=== PATIENT | male | born 2005 | race Caucasian/White ===

== ENCOUNTER 2023-04-19 10:35 | Outpatient (REF) | payer BC, SELFPAY ==
--- NOTE | ~2023-04-19 | XR_ITS ---
EXAMINATION: XR HAND, RIGHT CLINICAL INFORMATION: Pain. COMPARISON: CT right hand dated 04/19/2023. TECHNIQUE: PA, lateral, and oblique views of the right hand. FINDINGS: Bony alignment and mineralization are normal. There is a neutral ulnar variance. A displaced intra-articular fracture fragment is redemonstrated arising from the lateral aspect of the head of the third proximal phalanx. There is mild adjacent soft tissue swelling. No dislocation is seen. No soft tissue gas or foreign body is noted. XR/XR hand RT min 3V IMPRESSION: A displaced fracture is redemonstrated of the lateral aspect of the head of the right third proximal phalanx.
== END 2023-04-19 10:36 | disposition home or self-care (01) ==
LOC: HO.HOSX 10:35
PROVIDERS: PCP Family Medicine Sports Medicine; Visit Provider Physician Assistant
DX: S62.612A Displaced fracture of proximal phalanx of right middle finger, initial encounter for closed fracture (principal)
CPT/HCPCS: 73130

== ENCOUNTER 2023-04-19 10:35 | Outpatient (AMB) | payer BC, SELFPAY ==
--- NOTE | 2023-04-19 10:42 | A.OFFVIS_ITS ---
Intake Intake Visit Reasons: [facility]- FC of 3rd digit Intake Note: Vadim is a 17 year old left hand dominant male who presents today as a new patient for a evaluation of his right middle finger, DOI 04/17/23. Patient reports he was hiking and his hiking cleats got caught in something which lead him to fall forward. He states having some stiffness and a lot of pain with movement. Denies numbness and tingling. Allergies No Known Allergies Allergy (Verified 04/19/23 10:43) HPI [facility]- FC of 3rd digit HPI Details 17-year-old male who presents in the off ice today, as a new patient, for an evaluation of right hand pain. The patient reports he was hiking when he cleat got caught in something which lead him to fall forward. He reports some stiffness and a lot of pain with movement. He denies numbness or tingling. [facility] (Updated 04/19/23 @ 10:44 by Jerald Cueva) Alcohol intake: current Patient Tobacco Use Status: Never used Tobacco Current occupational status: student Current occupation: left hand dominant Review of Systems Const All systems reviewed & are unremarkable except as noted in HPI and below Physical Exam Const General: cooperative and no acute distress Orientation/consciousness: patient oriented x3 Resp Effort & Inspection: normal respiratory effort and able to speak in complete sentences Cardio Peripheral pulses: Peripheral pulses 2+ throughout Skin General skin exam: no rashes or lesions noted Neuro General: patient oriented x3 Extrem Other: Right hand: Middle finger is edematous and tender to palpation. Able to flex and extend at the PIP, DIP, and CMC joint. Laxity radial collateral ligament of the PIP joint of the middle finger on exam. Sensation intact. Capillary refill is brisk. Assessment & Plan Assessment & Plan (1) Fracture of proximal phalanx of middle finger: Code(s): S62.618A - Displaced fracture of proximal phalanx of other finger, initial encounter for closed fracture Qualifiers: Encounter type: initial encounter Fracture alignment: displaced Fracture type: closed Laterality: right Qualified Code(s): S62.612A - Displaced fracture of proximal phalanx of right middle finger, initial encounter for closed fracture Plan Mr. Hobson is a 17-year-old male who presents in the office today, as a new patient, for an evaluation of right hand pain. The patient reports he was hiking when he cleat got caught in something which lead him to fall forward. He reports some stiffness and a lot of pain with movement. He denies numbness or tingling. Dr. Irving was available to see the patient while in the office today, we also discussed the case with Dr. Pepe, and a collaborative treatment plan was made. The patient will be referred for a stat fine cut CT scan with middle digit focus for further evaluation of the right hand. Dr. Irving will call the patient once the CT scan is obtain to further discuss surgical intervention with Dr. Pepe. I discussed in detail the procedure and what to expect pre and post operatively. We discussed the risks, benefits and alternatives to the surgery as well as the rehabilitation course. The risks; which include, but are not limited to infec tion, bleeding, nerve injury, ongoing pain, swelling, and stiffness, perioperative risk of injury to bones and soft tissues, and blood clots. With their understanding they have consented to move forward with open vs closed reduction internal fixation right middle finger with Dr. Pepe He was placed in a finger splint, off the shelf, while in the office today. Follow up will be after the stat CT is obtained, or sooner if needed. OF NOTE: The patient will be obtaining his stat CT today, 04/19/2023, at 2:15 pm, EST. X-rays of the right hand which were obtained while in the office today and were reviewed by me, Franny Peter PA-C, revealed avulsion fracture of the proximal phalanx right middle finger. Orders: Orders XR hand RT min 3V Today M79.643 - Pain in unspecified hand CT hand RT wo IV con Today S62.618A - Displaced fracture of proximal phalanx of other finger, initial encounter for closed fracture Patient Instructions: Scribed for Franny Peter PA-C by Ale Clark medical operations supervisor, on 04/19/2023 at 10:38 am, EST. Coding Level of Care Code New Pt Level 4 (40495) Diagnoses Closed displaced fracture of proximal phalanx of right middle finger, initial encounter S62.121M Encounter type: initial encounter Fracture alignment: displaced Fracture type: closed Laterality: right
== END 2023-04-19 11:44 | disposition home or self-care (01) ==
PROVIDERS: PCP Family Medicine Sports Medicine; Visit Provider Physician Assistant
DX: S62.612A Displaced fracture of proximal phalanx of right middle finger, initial encounter for closed fracture (principal)
CPT/HCPCS: 99204

== ENCOUNTER 2023-04-19 14:05 | Outpatient (REF) | payer BC, SELFPAY ==
--- NOTE | ~2023-04-19 | CT_ITS ---
EXAMINATION: CT HAND WITHOUT CONTRAST, RIGHT CLINICAL INFORMATION: Displaced fracture of the proximal phalanx of the middle finger. COMPARISON: X-ray 04/19/2023. TECHNIQUE: Axial imaging. Sagittal and coronal reconstructions. This CT examination was performed using dose optimization techniques as appropriate, variously including the following: *Automated exposure control *Adjustment of mA and/or kV according to patient size (this includes techniques or standardized protocols for targeted exams where dose is matched to indication/reason for exam; i.e. extremities or head) *Use of iterative reconstruction technique DLP: 122 mGy-cm. FINDINGS: Middle Finger: There is an intra-articular fracture of the dorsal, central/radial aspect of the head of the proximal phalanx. There is a displaced ossific fragment measuring 6 x 3 x 8 mm (AP, transverse, length), displaced adjacent to the radial aspect of the PIP joint. The fracture fragment is rotated, with fracture surface facing radially. There is a surrounding soft tissue swelling and subcutaneous edema. The PIP joint articulation is maintained. No additional acute fractures identified. CT/CT hand RT wo IV con IMPRESSION: Displaced intra-articular fracture of the dorsal aspect of the head of the proximal phalanx. The fracture fragment is displaced radially adjacent to the PIP joint, and measures approximately 8 x 3 x 8 mm. The fracture fragment is rotated such that the fracture surface is facing radially.
== END 2023-04-19 14:06 | disposition home or self-care (01) ==
LOC: HO.CT 14:05
PROVIDERS: Visit Provider Physician Assistant
DX: S62.618A Displaced fracture of proximal phalanx of other finger, initial encounter for closed fracture (principal)
CPT/HCPCS: 73200

== ENCOUNTER 2023-04-25 05:53 | Day surgery (SDC) | payer BC, SELFPAY ==
[2023-04-25] VITALS (9 sets, daily range): BP systolic 122–141; BP diastolic 47–80; PULSE 76–94; RESP 14–18; TEMP 36.4–36.8; O2SAT 96–99; BMI 23.7
--- NOTE | ~2023-04-25 | FL_ITS ---
EXAMINATION: XR FLUOROSCOPY WITH IMAGES CLINICAL INFORMATION: Middle finger ORIF versus CRPP, right. COMPARISON: X-ray and CT of the right hand 04/19/2023 TECHNIQUE: Fluoroscopy Supervised By: Dr. Nubia Pepe. Fluoroscopy Time: 39.24 seconds. Cumulative Dose: 0.932 mGy. DAP: 0.563 Gycm2. Images: 12. FINDINGS: Images demonstrate a K wire or pin in the proximal phalanx of the right third finger with improved alignment of the displaced fracture fragment. FL/FL guidance in OR IMPRESSION: Fluoroscopy guidance for ORIF of proximal phalanx fracture of the right third finger
[2023-04-25] MEDS: Lactated Ringers 1,000 ML 80 ML IVCONT (06:25)
--- NOTE | 2023-04-25 07:30 | HO.ANESPROP2 ---
HPI - Anesthesia Eval Consult details Narrative: 17 yo male patient for Right Middle finger ORIF vs CRPP PMFSH Active Problems Active Problems: All Active Problems (Updated 04/25/23 @ 07:10 by Aubree Quintanilla MD) Fracture of proximal phalanx of middle finger (Acute) Past Medical History Medical History No known problems Family History Family history of problems with anesthesia: No Surgical History Surgical History No pertinent past surgical history History of Problems with Anesthesia: No Social History Alcohol intake: current Patient Tobacco Use Status: Never used Tobacco Are you DNR?: No Advance Directives: No Advance Directives Information Provided: Yes Nutrition Risks: No Nutritional Risk Current occupational status: student Current occupation: left hand dominant Meds Allergies Allergy/AdvReac Type Severity Reaction Status Date / Time No Known Allergies Allergy Verified 04/25/23 07:02 Active Medications: Current Medications Lactated Ringer's (Lr) 1,000 mls @ 80 mls/hr IVCONT .[id number] Last Admin: 04/25/23 06:25 Dose: 80 mls/hr Home Medications Medication Instructions Recorded Confirmed Last Taken Type No Known Home Meds 04/19/23 04/25/23 Unknown History Exam Height,Weight and Vital Signs: Height 6 ft 1 in Weight 81.556 kg Last Vital Signs Temp 98.3 F 04/25/23 06:03 Pulse 76 04/25/23 06:03 Resp 18 04/25/23 06:03 BP 141/80 H 04/25/23 06:03 Pulse Ox 99 04/25/23 06:03 O2 Del Method Room Air 04/25/23 06:03 Airway Mallampati Class: II TM Dist: >3cm Neck ROM: Full Loose/Missing/Broken Teeth: No (Denies broken, loose, missing teeth) Heart: RRR Lungs: CTAB Assessment and Plan Assessment Anesthesia Assessment: Anesthesia Plan Discussed and Chart Reviewed Final Anesthetic Review Family History of Problems with Anesthesia: No History of Problems with Anesthesia: No NPO: Yes ASA Class: I Final Preanesthetic Review: No Changes in Pt Med Stat, Meds/Allgs Chart Reviewed, Consent Obtained/Reviewed and Anes Risks/Benef Reviewed Patient Risk: Low Procedure Risk: Low Assessment/Block/Sedation in SS: Assess/Block/Sedation-SS Anesthetic Plan Anesthetic Plan: GA Disposition: Standard PACU
--- NOTE | 2023-04-25 10:35 | MHC.SHP ---
Pre-Procedural Eval Section A Date of Service: 04/25/23 Section B Chief Complaint: Displaced fracture of proximal phalanx of right mi Allergies: Allergies Allergy/AdvReac Type Severity Reaction Status Date / Time No Known Allergies Allergy Verified 04/25/23 07:02 Exam Exam Comment: The patient was alert oriented and in no acute distress. He has some mild swelling of the right middle finger at the PIP joint. He did have some active flexion to about 45 degrees and able to bring it back into extension. No lacerations or evidence of open injury. He did have some laxity of the radial collateral ligament of the right middle finger PIP joint. Radiographs and a CT scan of his right hand were reviewed by me On prior occasions and again today: They show an intra-articular fracture of the right middle finger proximal phalanx distal articular surface. Of a segment of the dorsal radial articular surface was displaced 100% and positioned radial to the PIP joint. Plan I have reviewed the history and physical and performed a pertinent physical examination on my patient. No changes have occurred unless specified. Assessment and plan: 1. Right middle finger proximal phalanx fracture, distal intra-articular with displacement date of injury about 8 days ago. I educated the patient about this condition we discussed operative and non operative treatment options and I am recommending surgery. He wished to proceed with surgery . The risks and benefits of operative treatment were discussed with the patient and the patient wishes to proceed with surgery. These risks include, but are not limited to risk of damage to blood vessels, nerves, tendons, infection, recurrence, incomplete relief of preoperative symptoms, persistent pain, possible need for further surgery and the risks associated with regional blocks and anesthesia. The plan is to take the patient to the operating room Today for the following procedures: 1. right middle finger proximal phalanx fracture open reduction internal fixation 2. [ ] All of the preoperative paperwork including the consent was filled out and signed today. All the patient's questions were answered. Time Spent With Patient Time: Total time managing care of this patient today ____ minutes.
--- NOTE | 2023-04-25 10:41 | P.OP_ITS ---
Operative Note Operative Note Date of Service: 04/25/23 Narrative: Operative Note Narrative: Preop diagnosis: 1. Right middle finger proximal phalanx fracture, distal intra-articular with displacement Postop diagnosis: Same Procedure: 1. Right middle finger proximal phalanx fracture open reduction internal fixation of the distal articular surface Surgeon: Nubia Pepe MD Anesthesia: General Anesthesia Findings: the dorsal radial fragment of the distal articular surface of the proximal phalanx was 100% displaced flipped and lying radial to the PIP joint. The radial collateral ligament was attached both distally and to the fragment. Implants: A 0.035 K-wire x1 Tourniquet time: 81 minutes EBL: 5.0 ml Specimen: none Drains: None Complications: None Disposition: Brought to the recovery room in stable condition Plan: Follow-up in 2 weeks for wound check, suture removal and pre clinic radiographs I will likely place him in a short-arm finger spica cast until between about 5 weeks postop. Anticipate removal of K-wire once good evidence of interval bony healing which I think will likely be in about 5 weeks postop. At that point he will need to start edmond taping and working with OT hand therapy to get back his range of motion. Indications: The patient is a [age] year old young man and [employer] student with a right middle finger proximal phalanx fracture at the distal radial articular surface with 100% displacement. . The risks and benefits of operative treatment, including but not limited to risk of damage to blood vessels, nerves, tendons, infection, recurrence, persistent pain or numbness, incomplete resolution of preoperative symptoms, or need for further surgery were discussed with the patient and they wished to proceed with surgery. Procedure: Once consent was obtained patient was brought back to the operating suite and placed in the operating table in a supine position. . Perioperative antibiotics and anesthesia was administered by the anesthesia team. A tourniquet was applied to the proximal aspect of the right upper extremity and the limb was prepped and draped in a standard surgical fashion. The limb was elevated exsanguinated with Esmarch bandage and the tourniquet inflated to 250 mm of mercury for a total tourniquet time of 81 minutes. the FluoroScan was used throughout our case to assess fracture reduction and placement of all implants. I made a midlateral incision over the radial aspect of the right middle finger PIP joint. The incision was made through the skin the subcutaneous tissues using a 15. Blade. I then carefully dissected down to the level of the lateral band, and then the radial aspect of the PIP joint. The fragment containing the dorsal radial aspect of the proximal phalanx distal articular surface was found to be attached to the radial collateral ligament, and positioned radial to the PIP joint. The fragment was left attached to the radial collateral ligament but otherwise dissected free from the surrounding soft tissues. The fracture site at the distal aspect of the proximal phalanx was cleared of soft tissue using a small rongeur and small curette. This then allowed me to assess the proper orientation of the distal articular fragment. I then flipped the fracture fragment into position and secured in place with a single 0.035 K-wire. Visually, this appeared to realign the articular surface. On fluoroscopic images we also appear to have obtain satisfactory fracture reduction and alignment. I did attempt to place a 2nd 0.035 K-wire for additional fixation, but I found that this moved the fracture fragment out of its anatomic we reduced position. I thus removed this K-wire. I found the fracture fragment was again in its essentially anatomic position both radiographically and visually And was stable testing.. I then used some 4-0 Vicryl to further grasp on to the radial collateral ligament secured to the periosteum. Multiple foot final fluoroscopic images were obtained. I was happy with our reduction and placement of all implants. [ ] At this point the tourniquet was deflated and hemostasis obtained with a brief period of local pressure . The wound was copiously irrigated with normal sali ne. The skin edges were reapproximated with 5-0 nylon suture. A digital block was performed with some 0.5% plain Marcaine for postop pain control and a sterile dressing was applied. the patient was then placed in a manager animal splint. The patient appears to have tolerated the procedure well and with no complications. All digits were well vascularized conclusion of the case.
[2023-04-25] MEDS: ondansetron HCL 4 MG/2 ML VIAL IVPUSH (11:16)
== END 2023-04-25 12:30 | disposition home or self-care (01) ==
PROVIDERS: Visit Provider Orthopaedic Surgery
PROC: (CPT 26735; principal; 2023-04-25 07:30)
DX: S62.612A Displaced fracture of proximal phalanx of right middle finger, initial encounter for closed fracture (principal); M79.641 Pain in right hand; W18.39XA Other fall on same level, initial encounter; Y93.01 Activity, walking, marching and hiking; Y92.9 Unspecified place or not applicable; Y99.9 Unspecified external cause status
CPT/HCPCS: 26735; J0690; J1100; J1885; J2250; J2405; J2704; J2795; J3010

== ENCOUNTER → 2023-04-25 05:53 | Outpatient (BNV) | payer BC, SELFPAY | PROVIDERS: Visit Provider Orthopaedic Surgery | DX: S62.612A Displaced fracture of proximal phalanx of right middle finger, initial encounter for closed fracture (principal) | CPT/HCPCS: 26735 ==

== ENCOUNTER 2023-05-11 06:06 | Outpatient (REF) | payer BC, SELFPAY ==
--- NOTE | ~2023-05-11 | XR_ITS ---
EXAMINATION: XR HAND, RIGHT CLINICAL INFORMATION: Fracture fixation follow-up COMPARISON: 04/19/2023 TECHNIQUE: PA, lateral, and oblique views of the right hand. FINDINGS: K wire fixation of the fracture fragment at the dorsal/radial aspect of the head of the 3rd proximal phalanx. No definite osseous bridging. On the lateral view, the displacement of the fragment is approximately 0.7 mm. XR/XR hand RT min 3V IMPRESSION: K wire fixation of the fracture fragment at the head of the 3rd proximal phalanx. No definite osseous bridging. CT could better assess if indicated.
== END 2023-05-11 06:07 | disposition home or self-care (01) ==
LOC: HO.HOSX 06:06
PROVIDERS: Visit Provider Physician Assistant
DX: S62.612D Displaced fracture of proximal phalanx of right middle finger, subsequent encounter for fracture with routine healing (principal); M79.641 Pain in right hand; X58.XXXD Exposure to other specified factors, subsequent encounter
CPT/HCPCS: 29085; 73130

== ENCOUNTER 2023-05-11 10:17 | Outpatient (AMB) | payer BC, SELFPAY ==
--- NOTE | 2023-05-11 10:22 | MHC.OFFVIS ---
Intake Intake Visit Reasons: PO-Rt MF ORIF vs CRPP 04/25 Intake Note: Vadim is a 17 year old left hand dominant male who presents today for a post operative right MF CRPP, DOS 04/25/23 . Patient reports he is doing well, states mild pain with movement of hand. Allergies No Known Allergies Allergy (Verified 05/11/23 10:38) Medication List - Last Reconciled 05/11/23 by Annelise Rangel PA-C No Known Home Meds HPI PO-Rt MF ORIF vs CRPP 04/25 HPI Details 17-year-old left hand dominant male who returns to the office today for post-op right middle finger CRPP, 04/25/23. He continues to have mild pain with movement of hand but is doing well overall. 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 He has no other concerns today. [facility] Medical History No known problems Surgical History No pertinent past surgical history Social History Alcohol intake: current Comment: counts correct Patient Tobacco Use Status: Never used Tobacco Current occupational status: student Current occupation: left hand dominant Review of Systems Const All systems reviewed & are unremarkable except as noted in HPI and below Physical Exam Extrem Other: Right middle finger: Incision is intact. Pin intact. No surrounding erythema or drainage sensation intact. Office Procedures Casting/Splints 01914-Wjty/Wrist Cast Application Procedure code (CPT) selection complete Results Reviewed Results Reviewed: Date of Service: 04/25/23 Narrative: Operative Note Preop diagnosis: 1. Right middle finger proximal phalanx fracture, distal intra-articular with displacement Postop diagnosis: Same Procedure: 1. Right middle finger proximal phalanx fracture open reduction internal fixation of the distal articular surface Xrays were obtained in the office today and personally reviewed by me of the right hand show pinn intact with stable fracture alignment Assessment & Plan Assessment & Plan (1) Fracture of proximal phalanx of middle finger: Code(s): S62.618A - Displaced fracture of proximal phalanx of other finger, initial encounter for closed fracture Qualifiers: Encounter type: subsequent encounter Fracture alignment: displaced Fracture healing: with routine healing Fracture type: closed Laterality: right Qualified Code(s): S62.612D - Displaced fracture of proximal phalanx of right middle finger, subsequent encounter for fracture with routine healing Plan: He was placed in a short-arm finger spica cast until about 5 weeks postop. Anticipate removal of K-wire once good evidence of interval bony healing which will likely be in about 5 weeks postop. At that point he will need to start edmond taping and working with OT hand therapy to get back his range of motion. 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 I did mention that he can go ski lounge and perform to that extent but he should be avoiding any type of lifting, pushing, pulling or carrying greater than a cellphone for the next 5 weeks. I also encouraged him to contact the office if he finds the cast uncomfortable or if he gets it dirty or wet. He is content with this plan and will follow-up in 5 weeks with cast off and xrays with Dr Pepe Orders: Orders XR hand RT min 3V Today M79.641 - Pain in right hand Patient Instructions: Scribed for Annelise Rangel PA-C, by Valentin Bowling biomedical service engineer, on 05/11/2023 at 10:30 AM EST. Annelise Engel PA-C, have personally reviewed and agree with the information entered by the scribe. Coding Level of Care Code Global (13861) Diagnoses Closed displaced fracture of proximal phalanx of right middle finger with routine healing, subsequent encounter S62.612D Encounter type: subsequent encounter Fracture alignment: displaced Fracture healing: with routine healing Fracture type: closed Laterality: right CPT Codes Casting - CPT: 27560-Rdxe/Wrist Cast Application ([id number])
== END 2023-05-11 11:46 | disposition home or self-care (01) ==
PROVIDERS: Visit Provider Physician Assistant
DX: S62.612D Displaced fracture of proximal phalanx of right middle finger, subsequent encounter for fracture with routine healing (principal)
CPT/HCPCS: 29085; 99024

== ENCOUNTER 2023-06-22 12:50 | Outpatient (AMB) | payer BC, SELFPAY ==
--- NOTE | 2023-06-22 13:16 | A.OFFVIS_ITS ---
Intake Intake Visit Reasons: PO-Rt MF ORIF vs CRPP 04/25/23 Intake Note: Vadim harrison 17 year old male presents today for a post operative right MF ORIF on 04/25/23 . Patient reports he is doing well, denies pain. He states some soreness. Allergies No Known Allergies Allergy (Verified 06/22/23 13:29) HPI PO-Rt MF ORIF vs CRPP 04/25/23 HPI Details 17-year-old male who returns to the [facility] today for post-op right middle finger ORIF vs CRPP, 04/25/23. He states he has no pain however he reports he has mild swelling in his finger. He is doing well overall and has no other concerns today. [facility] Medical History No known problems Surgical History No pertinent past surgical history Social History Alcohol intake: current Comment: counts correct Patient Tobacco Use Status: Never used Tobacco Current occupational status: student Current occupation: left hand dominant Review of Systems Const All systems reviewed & are unremarkable except as noted in HPI and below Physical Exam Extrem Other: Right middle finger: Pin is intact. There is no erythema or drainage around pin site. NVI. Results Reviewed Results Reviewed: Xrays were obtained in the office today and personally reviewed by me of the [facility] hand show intact pinn with stable fracture /healing Procedure: 04/25/23 1. Right middle finger proximal phalanx fracture open reduction internal fixation of the distal articular surface Surgeon: Nubia Peep MD Anesthesia: General Anesthesia Findings: the dorsal radial fragment of the distal articular surface of the proximal phalanx was 100% displaced flipped and lying radial to the PIP joint. The radial collateral ligament was attached both distally and to the fragment. Implants: A 0.035 K-wire x1 Assessment & Plan Assessment & Plan (1) Fracture of proximal phalanx of middle finger: Code(s): S62.618A - Displaced fracture of proximal phalanx of other finger, initial encounter for closed fracture Qualifiers: Encounter type: subsequent encounter Fracture alignment: displaced Fracture healing: with routine healing Fracture type: closed Laterality: right Qualified Code(s): S62.612D - Displaced fracture of proximal phalanx of right middle finger, subsequent encounter for fracture with routine healing Plan Pin was removed in the office without complications. We did work on some ROM techniques in the office today. I was able to get her MCP to 90, PIP to 90, and DIP to 2nd palmar crease. We worked on this a few times in the office today and explained the importance of working this at home several times a day. She will also begin a course of occupational therapy. We edmond taped the middle and ring finger which keep with activities for the next 2 weeks and I will see her at that time for a ROM check with Dr. Pepe, sooner if needed. Orders: Orders OT Evaluation and Treatment Today S62.618A - Displaced fracture of proximal phalanx of other finger, initial encounter for closed fracture XR hand RT min 3V Today M79.641 - Pain in right hand Patient Instructions: Scribed for Annelise Rangel PA-C, by Valentin Bowling director biomedical engineering, on 06/22/2023 at 1:30 PM YARA. Annelise Engel PA-C, have personally reviewed and agree with the information entered by the scribe. Coding Level of Care Code Global (18986) Diagnoses Closed displaced fracture of proximal phalanx of right middle finger with routine healing, subsequent encounter S62.612D Encounter type: subsequent encounter Fracture alignment: displaced Fracture healing: with routine healing Fracture type: closed Laterality: right
== END 2023-06-22 14:08 | disposition home or self-care (01) ==
PROVIDERS: Visit Provider Physician Assistant
DX: S62.612D Displaced fracture of proximal phalanx of right middle finger, subsequent encounter for fracture with routine healing (principal)
CPT/HCPCS: 99024

== ENCOUNTER 2023-06-22 12:50 | Outpatient (REF) | payer BC, SELFPAY ==
--- NOTE | ~2023-06-22 | XR_ITS ---
EXAMINATION: XR HAND, RIGHT CLINICAL INFORMATION: Pain. COMPARISON: Radiograph right hand 05/11/2023. TECHNIQUE: PA, lateral, and oblique views of the right hand. FINDINGS: Stable positioning of K wire fixation of the fracture fragment at the dorsal/radial aspect of the head of the third proximal phalanx. No evidence of hardware fracture or complication. The fracture line is less distinct suggesting some degree of osseous bridging. No significant callus formation. Stable surrounding soft tissue swelling. XR/XR hand RT min 3V IMPRESSION: 1. Healing fracture of the head of the third proximal phalanx. 2. No evidence of hardware fracture or complication.
== END 2023-06-22 12:51 | disposition home or self-care (01) ==
LOC: HO.HOSX 12:50
PROVIDERS: Visit Provider Physician Assistant
DX: S62.612D Displaced fracture of proximal phalanx of right middle finger, subsequent encounter for fracture with routine healing (principal)
CPT/HCPCS: 73130

== ENCOUNTER 2023-07-06 11:51 | Outpatient (REF) | payer BC, SELFPAY ==
--- NOTE | ~2023-07-06 | XR_ITS ---
EXAMINATION: XR HAND, RIGHT CLINICAL INFORMATION: Pain in the right hand COMPARISON: 06/22/2023 and 05/11/2023 TECHNIQUE: PA, lateral, and oblique views of the right hand. FINDINGS: There is healed fracture with mild soft tissue swelling at the proximal interphalangeal joint of third finger. Seen on the initial images avulsion fragment is completely healed. There is mild periarticular osteopenia seen. XR/XR hand RT min 3V IMPRESSION: Interval healing of fracture. Hardware removed.
== END 2023-07-06 11:52 | disposition home or self-care (01) ==
LOC: HO.HOSX 11:51
PROVIDERS: Visit Provider Orthopaedic Surgery
DX: S62.612D Displaced fracture of proximal phalanx of right middle finger, subsequent encounter for fracture with routine healing (principal)
CPT/HCPCS: 73130

== ENCOUNTER 2023-07-06 13:41 | Outpatient (AMB) | payer BC, SELFPAY ==
--- NOTE | 2023-07-06 13:52 | MHC.OFFVIS ---
Intake Intake Visit Reasons: PO-Rt MF ORIF vs CRPP 04/25/23 AR Intake Note: Vadim a 17 year old male presents today for a post operative right MF ORIF ROM check from 04/25/23. States OT has been helping and he continues to do at home exercises. His numbness and tingling has subsided. He has stiffness with removing finger brace. Allergies No Known Allergies Allergy (Verified 07/06/23 13:57) HPI PO-Rt MF ORIF vs CRPP 04/25/23 AR HPI Details Vadim is a 17 year old right hand dominant man who returns to the office today S/P right middle finger ORIF, DOS: 04/25/23. He says he is doing well, and his sensation has improved. He has been working with OT hand therapy on his ROM. He says he has increased pain when working on ROM, but minimal pain at rest. He has been wearing an satellite communications engineer brace. [facility] Medical History No known problems Surgical History No pertinent past surgical history Social History Alcohol intake: current Comment: counts correct Patient Tobacco Use Status: Never used Tobacco Current occupational status: student Current occupation: left hand dominant Review of Systems Const All systems reviewed & are unremarkable except as noted in HPI and below Physical Exam Const General: no acute distress and alert Orientation/consciousness: patient oriented x3 Neuro General: patient oriented x3 Extrem Other: Evaluation of Right Upper Extremity: The patient is alert, oriented, and in no acute distress Neuro: Median, Ulnar, Radial nerves motor and sensory intact and sensation is normal to the tips of all digits Vascular: Cap refill brisk ROM: He can bring his fingers closed to a fist, with his middle finger PIP joint flexed to 90 degrees Supple flexion contracture of ~20 degrees, which I can bring out into full extension though it's a little uncomfortable. He also has slight flexion contractures of the PIP joints of the ring and small fingers, but again, these can be brought out to full extension. The PIP joint is stable, the ulnar and radial collateral ligaments stable on exam Mild middle finger PIP joint swelling Radiographs: 3 views of the right hand, with attention to the middle finger, were taken and viewed by me today in clinic. They show satisfactory fracture alignment with evidence of interval bony healing. The distal articular fragment that had been flipped out of the joint appears to have healed in anatomic alignment. Psych Appearance: grossly normal Affect: normal affect Attitude: cooperative Assessment & Plan Assessment & Plan (1) Fracture of proximal phalanx of middle finger: Code(s): S62.618A - Displaced fracture of proximal phalanx of other finger, initial encounter for closed fracture Qualifiers: Encounter type: subsequent encounter Fracture type: closed Fracture alignment: displaced Laterality: right Fracture healing: with routine healing Qualified Code(s): S62.612D - Displaced fracture of proximal phalanx of right middle finger, subsequent encounter for fracture with routine healing Plan Assessment & Plan: 1. Right middle finger proximal phalanx fracture, S/P distal articular surface ORIF DOS: 04/25/23 The patient appears to be doing well post-operatively I educated him about the post-operative course I discussed activity modifications, he should continue to work with OT hand therapy on ROM exercises. He should continue to perform these exercises at home and throughout the day. He is able to continue wearing his dynamic extension splint, as directed by OT He is able to return to the gym but should be mindful to work towards heavier activities with his right hand, beginning with lightweight activities He should avoid any heavy impact activities or activities prone to falling for the next few weeks He will follow up in 4-6 weeks for a ROM check, no radiographs unless he has a re-injury Scribed for Nubia Pepe MD by Michael Portillo, adjunct faculty for medical terminology, on 07/06/23 at 2:05 PM, EST. Orders: Orders XR hand RT min 3V 07/06/23 M79.641 - Pain in right hand Coding Level of Care Code Global (48662) Diagnoses Closed displaced fracture of proximal phalanx of right middle finger with routine healing, subsequent encounter S62.612D Encounter type: subsequent encounter Fracture type: closed Fracture alignment: displaced Laterality: right Fracture healing: with routine healing
== END 2023-07-06 14:54 | disposition home or self-care (01) ==
PROVIDERS: Visit Provider Orthopaedic Surgery
DX: S62.612D Displaced fracture of proximal phalanx of right middle finger, subsequent encounter for fracture with routine healing (principal)
CPT/HCPCS: 99024

== ENCOUNTER 2023-08-10 12:45 | Outpatient (AMB) | payer BC, SELFPAY ==
--- NOTE | 2023-08-10 12:53 | A.OFFVIS_ITS ---
Intake Intake Visit Reasons: ov- Rt MF ORIF vs CRPP 04/25/23 AR Intake Note: Vadim a 17 year old male presents today for a S/P right middle finger ORIF, DOS: 04/25/23.ROM check. Allergies No Known Allergies Allergy (Verified 08/10/23 12:53) HPI ov- Rt MF ORIF vs CRPP 04/25/23 AR HPI Details Vadim is a 17 year old right hand dominant man who returns to the office today S/P right middle finger ORIF, DOS: 04/25/23. He is here for a ROM check He says he is doing well, and his motion has improved. He has been working with OT hand therapy on his ROM. He is pleased with the results of his surgery. [facility] Medical History No known problems Surgical History No pertinent past surgical history Social History Alcohol intake: current Comment: counts correct Patient Tobacco Use Status: Never used Tobacco Current occupational status: student Current occupation: left hand dominant Physical Exam Const General: no acute distress and alert Orientation/consciousness: patient oriented x3 Neuro General: patient oriented x3 Extrem Other: Evaluation of Right Upper Extremity: The patient is alert, oriented, and in no acute distress Neuro: Median, Ulnar, Radial nerves motor and sensory intact and sensation is normal to the tips of all digits Vascular: Cap refill brisk ROM: He can bring his fingers closed to a fist, with his middle finger PIP joint flexed to ~100 degrees Supple flexion contracture of ~10-15 degrees No mal-alignment The PIP joint is stable, the ulnar and radial collateral ligaments stable on exam Mild middle finger PIP joint enlargement, though swelling is improving. Psych Appearance: grossly normal Affect: normal affect Attitude: cooperative Assessment & Plan Assessment & Plan (1) Fracture of proximal phalanx of middle finger: Code(s): S62.618A - Displaced fracture of proximal phalanx of other finger, initial encounter for closed fracture Qualifiers: Encounter type: subsequent encounter Fracture alignment: displaced Fracture healing: with routine healing Fracture type: closed Laterality: right Qualified Code(s): S62.612D - Displaced fracture of proximal phalanx of right middle finger, subsequent encounter for fracture with routine healing Plan Assessment & Plan: 1. Right middle finger proximal phalanx fracture, S/P distal articular surface ORIF DOS: 04/25/23 The patient appears to be doing well post-operatively I educated him about the post-operative course I discussed activity modifications, he should continue to work with OT hand therapy on ROM exercises. He should continue to perform these exercises at home and throughout the day. I encouraged him to consider assistive gadgets for gripping activities, such as opening jars. He is able to return to the gym but should be mindful to work towards heavier activities with his right hand He should avoid any heavy impact activities or activities prone to falling for the next few weeks He is active with outdoor sports, including kayaking, skiing, and rock climbing. I encouraged him to slowly work up towards returning to these activities, and be mindful of any pain. 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 He is very pleased with how his hand is doing. He will follow up prn Scribed for Nubia Pepe MD by Michael Portillo, medical sales representative, on 08/10/23 at 1:15 PM PM, EST. Coding Level of Care Code Est Pt Level 3 (53694) Diagnoses Closed displaced fracture of proximal phalanx of right middle finger with routine healing, subsequent encounter S62.612D Encounter type: subsequent encounter Fracture alignment: displaced Fracture healing: with routine healing Fracture type: closed Laterality: right
== END 2023-08-10 13:23 | disposition home or self-care (01) ==
PROVIDERS: PCP Family Medicine Sports Medicine; Visit Provider Orthopaedic Surgery
DX: S62.612D Displaced fracture of proximal phalanx of right middle finger, subsequent encounter for fracture with routine healing (principal)
CPT/HCPCS: 99213

== ENCOUNTER → 2023-08-10 12:45 | Outpatient (BNVA) | payer BC, SELFPAY | PROVIDERS: PCP Family Medicine Sports Medicine; Visit Provider Orthopaedic Surgery ==

== ENCOUNTER 2023-09-02 09:00 | Outpatient (RCR) | payer BC, SELFPAY ==
--- NOTE | 2023-07-04 16:40 | MHC.OT.OEV ---
[address] [phone] F: [phone] Occupational Therapy Evaluation Patient Name: Vadim Hobson Diagnosis: (R)MF ORIF vs. CRPP Date of Onset: Date of Surgery: 04/25/23 Attending Provider: Annelise Rangel Prescribed Treatment: MD Follow Up Appointment: History of Current Condition: Patient is a 17-year-old left handed male had right middle finger ORIF vs CRPP on 04/25/23, he was referred by ZOË Ribera for ROM. Significant Medical History: Precautions/Contraindications: Patient Goals: Hand Dominance: Left Observations: QuickDASH Score: 13 Prior Level of Function and Occupation Self Care, Employment, Leisure: (I)ADLs/IADLS. 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 [employer] Living Situation, Family and/or Social Support: ski, hikes, rock climbs, white water kayaks Current Level of Function and Occupation Self Care, Employment, Leisure: (I)ADLs/IADLS Sleep: sleeping through the night Driving: Vision: Balance: Pain Assessment Pain Score: 7 Pain Scale Used: Numeric (0 - 10) Pain Location and Description: 0/10 7/10 pain when trying to perform range of motion Aggravating Factors: Trying to perform maximal ROM Alleviating Factors: Does not require any alleviating factors Skin and Soft Tissue Assessment Skin and Soft Tissue: Swelling Comments: (R)3rd digit PIP Nerve assessment Ulnar Nerve: Median Nerve: Radial Nerve: Comments: WFL Sensory Assessment Temperature: Light Touch: Proprioception: Vibration: Comments: WFL Edema Assessment Upper Extremity: Right Impaired Lower Extremity: Comments: (R)3rd digit PIP Dexterity Assessment Dexterity: WNL Comments: Functional Dexterity Test: (R)22.80 seconds, (L)20.74 seconds Special Tests Comments: AROM(PROM) Strength Cervical Cervical Flexion: Cervical Extension: Cervical Lateral Flexion: Cervical Rotation: Comments: Shoulder Flexion: Extension: Abduction: Internal Rotation: External Rotation: Comments: WFL Flexion: Extension: Abduction: Internal Rotation: External Rotation: Comments: 4+/5 grossly (B) Elbow Flexion: Extension: Pronation: Supination: Comments: WFL Flexion: Extension: Pronation: Supination: Comments: 4+/5 grossly (B) Wrist Flexion: 75 Extension: 85 Ulnar Deviation: 29 Radial Deviation: 25 Comments: WFL Flexion: Extension: Ulnar Deviation: Radial Deviation: Comments: 4+/5 grossly Thumb Thumb CMC Flexion: Thumb MCP Flexion: Thumb IP Flexion: Radial Abduction: Palmar Abduction: Bon[place] (Kapandji 0-10): Comments: Digits Index MCP: PIP: DIP: Long MCP: PIP: 64* flexion, 40* extension DIP: 29* flexion, WFL extension Ring MCP: PIP: DIP: Small MCP: PIP: DIP: Comments: Gross Grasp: (R)46lbs. (L)111.3lbs. Lateral Pinch: Two-Point Pinch: Three-Jaw Sarmad: Comments: Patient Education Primary Language: Polish Lay Out And Detail Drafter Required: No Current Knowledge: Teaching Method: Education Needs Identified on Evaluation: How did patient/family demonstrate learning? Barriers to Learning: Readiness for Learning: Who was educated? Comments: Plan of Care Assessment: Patient is a 17-year-old left handed male who sustained a fall while hiking resulting in a (R)middle finger proximal phalanx fx requiring an ORIF vs CRPP on 04/25/23. He stated he fell and stuck his hand out to try and brace himself causing him to injure his finger. 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 He participates in many activities such as hiking, skiing, rock climbing and kayaking. He reports 0/10 pain and 7/10 pain when he attempts to perform maximal ROM of the PIP. Patient has edema present in the PIP of the 4th digit. His current ROM measurements of the 3rd digit is as follows: PIP: 64* AROM flexion and flexion contraction of 40*, DIP AROM 29* flexion. Patient's manager transmission strength is 46lbs. (R) and 111.3lbs. (L). Quick DASH= 13 indicating patient's perceived perception of (R)UE impairment during self care tasks. Based on the initial evaluation patient's current level is min (A) as patient presents with impaired ROM, flexion contraction, pain, edema, impaired strength and impaired performance during self care tasks. Due do the documented impairments it is recommended that patient receive skilled OT in order to increase patient's ROM, increase his strength and decrease his pain. Thank you for your referral. STG Duration: 2 weeks Short Term Goals: Patient will be (I) with wear/ care schedule of finger splint Patient will increase (R)3rd digit extension by 15* Patient will increase (R)3rd digit flexion by 15* Patient will report 5/10 pain during movement Patient will increase (R)manager transmission strength to 80lbs. LTG Duration: 4 weeks Hospice Social Worker Goals: Patient will increase (R)3rd digit flexion to at least 80* Patient will increase (R)3rd digit extension to neural Patient will increase (R) manager transmission strength to 100lbs. Patient will be (I) with HEP Frequency and Duration: The patient will be seen 2x a week for 4 weeks Treatment Plan: Therapeutic Exercise Therapeutic Activity Home Exercise Program Splinting Patient Education Edema Control ADL Training Ultrasound Paraffin Fluidotherapy MHP Cold Packs Kinesiotaping OT eval and treat Electronically Signed By: Raissa Garrett Reviewed/agree with student documentation: Therapist: Please sign and return to therapist, Thank you for your referral.
--- NOTE | 2023-07-05 17:07 | MHC.OT.OEV ---
[address] [phone] F: [phone] Occupational Therapy Evaluation Patient Name: Vadim Hobson Diagnosis: (R)MF ORIF vs. CRPP Date of Onset: Date of Surgery: 04/25/23 Attending Provider: Annelise Rangel Prescribed Treatment: MD Follow Up Appointment: History of Current Condition: Patient is a 17-year-old left handed male had right middle finger ORIF vs CRPP on 04/25/23, he was referred by ZOË Ribera for ROM. Significant Medical History: Precautions/Contraindications: Patient Goals: Hand Dominance: Left Observations: QuickDASH Score: 13 Prior Level of Function and Occupation Self Care, Employment, Leisure: (I)ADLs/IADLS. 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 [employer] Living Situation, Family and/or Social Support: ski, hikes, rock climbs, white water kayaks Current Level of Function and Occupation Self Care, Employment, Leisure: (I)ADLs/IADLS Sleep: sleeping through the night Driving: Vision: Balance: Pain Assessment Pain Score: 7 Pain Scale Used: Numeric (0 - 10) Pain Location and Description: 0/10 7/10 pain when trying to perform range of motion Aggravating Factors: Trying to perform maximal ROM Alleviating Factors: Does not require any alleviating factors Skin and Soft Tissue Assessment Skin and Soft Tissue: Swelling Comments: (R)3rd digit PIP Nerve assessment Ulnar Nerve: Median Nerve: Radial Nerve: Comments: WFL Sensory Assessment Temperature: Light Touch: Proprioception: Vibration: Comments: WFL Edema Assessment Upper Extremity: Right Impaired Lower Extremity: Comments: (R)3rd digit PIP Dexterity Assessment Dexterity: WNL Comments: Functional Dexterity Test: (R)22.80 seconds, (L)20.74 seconds Special Tests Comments: AROM(PROM) Strength Cervical Cervical Flexion: Cervical Extension: Cervical Lateral Flexion: Cervical Rotation: Comments: Shoulder Flexion: Extension: Abduction: Internal Rotation: External Rotation: Comments: WFL Flexion: Extension: Abduction: Internal Rotation: External Rotation: Comments: 4+/5 grossly (B) Elbow Flexion: Extension: Pronation: Supination: Comments: WFL Flexion: Extension: Pronation: Supination: Comments: 4+/5 grossly (B) Wrist Flexion: 75 Extension: 85 Ulnar Deviation: 29 Radial Deviation: 25 Comments: WFL Flexion: Extension: Ulnar Deviation: Radial Deviation: Comments: 4+/5 grossly Thumb Thumb CMC Flexion: Thumb MCP Flexion: Thumb IP Flexion: Radial Abduction: Palmar Abduction: [place] (Kapandji 0-10): Comments: Digits Index MCP: PIP: DIP: Long MCP: PIP: 64* flexion, 40* extension DIP: 29* flexion, WFL extension Ring MCP: PIP: DIP: Small MCP: PIP: DIP: Comments: Gross Grasp: (R)46lbs. (L)111.3lbs. Lateral Pinch: Two-Point Pinch: Three-Jaw Sarmad: Comments: Patient Education Primary Language: Portuguese Vice President Client Services Required: No Current Knowledge: Teaching Method: Education Needs Identified on Evaluation: How did patient/family demonstrate learning? Barriers to Learning: Readiness for Learning: Who was educated? Comments: Plan of Care Assessment: Patient is a 17-year-old left handed male who sustained a fall while hiking resulting in a (R)middle finger proximal phalanx fx requiring an ORIF vs CRPP on 04/25/23. He stated he fell and stuck his hand out to try and brace himself causing him to injure his finger. 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 He participates in many activities such as hiking, skiing, rock climbing and kayaking. He reports 0/10 pain and 7/10 pain when he attempts to perform maximal ROM of the PIP. Patient has edema present in the PIP of the 4th digit. His current ROM measurements of the 3rd digit is as follows: PIP: 64* AROM flexion and flexion contraction of 40*, DIP AROM 29* flexion. Patient's road roller engineer strength is 46lbs. (R) and 111.3lbs. (L). Quick DASH= 13 indicating patient's perceived perception of (R)UE impairment during self care tasks. Based on the initial evaluation patient's current level is min (A) as patient presents with impaired ROM, flexion contraction, pain, edema, impaired strength and impaired performance during self care tasks. Due do the documented impairments it is recommended that patient receive skilled OT in order to increase patient's ROM, increase his strength and decrease his pain. Thank you for your referral. STG Duration: 2 weeks Short Term Goals: Patient will be (I) with wear/ care schedule of finger splint Patient will increase (R)3rd digit extension by 15* Patient will increase (R)3rd digit flexion by 15* Patient will report 5/10 pain during movement Patient will increase (R)road roller engineer strength to 80lbs. LTG Duration: 4 weeks Wine Master Goals: Patient will increase (R)3rd digit flexion to at least 80* Patient will increase (R)3rd digit extension to neural Patient will increase (R) road roller engineer strength to 100lbs. Patient will be (I) with HEP Frequency and Duration: The patient will be seen 2x a week for 4 weeks Treatment Plan: Therapeutic Exercise Therapeutic Activity Home Exercise Program Splinting Patient Education Edema Control ADL Training Ultrasound Paraffin Fluidotherapy MHP Cold Packs Kinesiotaping OT eval and treat Electronically Signed By: Raissa Walton OTR/L, CLT Reviewed/agree with student documentation: Therapist: Please sign and return to therapist, Thank you for your referral.
--- NOTE | 2023-08-08 09:55 | MHC.OT.OP ---
[address] [phone] F: [phone] Occupational Therapy Progress Note Patient Name: Vadim Hobson Diagnosis: (R)MF ORIF vs. CRPP Date of Surgery: 04/25/23 Date of Evaluation: 07/04/23 Treatments to Date: 9 Cancellations to Date: No Shows to Date: Subjective: It wasn't bad. Pain Score: 2 Pain Location: (R)3rd digit PIP Objective Measures: PROGRESS NOTE: ROM assessment: 3rd PIP: 81* active flexion, flexion contraction at 18*, DIP 43* active flexion Agricultural And Forestry Supervisor strength: (R)90lbs., (R)111.3lbs. Status: Progressing Assessment: Patient has had 9 1:1 treatments and is making consistent progress towards his goals. He has achieved all of his STGs and is progressing towards hi LTGs. At this time patient has increased his PIP flexion by 17*, his flexion contracture has decreased by 22* and has increase his DIP flexion by 14*. Patient's money room teller strength has increased by 44lbs. He is complaint with wearing his finger splint and with his HEP. His current barriers are mild pain as he reports 2-3/10 during movement and edema of the PIP requiring continued skilled OT in order to achieve his PLOF. When pain and edema has decreased patient will be d/c'd form skilled Occupational Therapy. Short Term Goals: Patient will be (I) with wear/ care schedule of finger splint-MET Patient will increase (R)3rd digit extension by 15*- MET Patient will increase (R)3rd digit flexion by 15* - MET Patient will report 5/10 pain during movement - MET Patient will increase (R)money room teller strength to 80lbs. -MET Custodial Goals: Patient will increase (R)3rd digit flexion to at least 80*-MET Patient will increase (R)3rd digit extension to neutral - CONTINUE Patient will increase (R) money room teller strength to 100lbs.- CONTINUE Patient will be (I) with HEP- MET Frequency and Duration: The patient will be seen 2x a week for 2 weeks Treatment Plan: Therapeutic Exercise Therapeutic Activity Home Exercise Program Splinting Patient Education Desensitization/Sensory Re-ed ADL Training Paraffin Fluidotherapy MHP Cold Packs Joint Mobilization Soft Tissue Mobilization OT eval and treat Electronically Signed By: Raissa Walton OTR/L, CLT Reviewed/agree with student documentation: Therapist:
--- NOTE | 2023-09-02 09:27 | MHC.OT.DC ---
[address] [phone] F: [phone] Occupational Therapy Discharge Note Patient Name: Vadim Hobson Provider: Annelise Rangel Diagnosis: (R)MF ORIF vs. CRPP Date of Surgery: 04/25/23 Date of Evaluation: 07/04/23 Date of Discharge: Treatments to Date: 11 Cancellations to Date: No Shows to Date: Discharge Status: Improved Function Independent with HEP Discharge Summary: Patient has achieved maximal progress towards to his goals. 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 As he has achieved maximal potential patient is d/c'd from skilled OT. Patient was a pleasure to work with, thank you for your referral. Electronically Signed By: Raissa Walton OTR/L, CLT Reviewed/agree with student documentation: Therapist: Please Sign and return to therapist, thank you for your referral.
== END 2023-09-02 09:28 | disposition home or self-care (01) ==
LOC: HO.OT 09:00
PROVIDERS: PCP Family Medicine Sports Medicine; Visit Provider Physician Assistant
DX: S62.618A Displaced fracture of proximal phalanx of other finger, initial encounter for closed fracture (principal)
CPT/HCPCS: 97110; 97140; 97165; 97166; 97760